=== PATIENT | male | born 1990 | race Caucasian/White ===

== ENCOUNTER 2023-10-10 21:34 | Observation (INO) | payer OTHER ==
[2023-10-10] MEDS ORDERED: KETOROLAC 15 MG/ML 1 ML VIAL IVP STA (22:24)
[2023-10-10] MEDS ORDERED: SODIUM CHLORIDE 0.9% 1,000 ML IV ONE (22:25)
[2023-10-10 23:52] LABS: Basophils % (A) 1 %; Eosinophils # (A) 0.2 k/uL (0-0.7); Eosinophils % (A) 4 %; HCT 42.6 % (39.0-53.0); HGB 13.9 gm/dL (13.0-17.5); Lymphocytes # (A) 2.2 k/uL (1.0-4.8); Lymphocytes % (A) 41 %; MCH 30.7 pg (25.0-35.0); MCHC 32.7 g/dL (31.0-37.0); MCV 93.7 fL (80.0-100.0); Mean Platelet Volume 7.8; Monocytes # (A) 0.4 k/uL (0-1.0); Monocytes % (A) 7 %; Neutrophils # (A) 2.4 k/uL (1.3-7.7); Neutrophils % (A) 45 %; Platelet Count 204 k/uL (150-450); RBC 4.55 m/uL (4.30-5.90); RDW 13.7 % (11.5-15.5); WBC 5.4 k/uL (3.8-10.6)
[2023-10-11 00:02] LABS: ALT 153 U/L (4-49); AST 90 U/L (17-59); African American GFR (CKD) >90 (>60 ml/min/1.73 sqM); Albumin 3.7 g/dL (3.5-5.0); Alkaline Phosphatase 70 U/L (38-126); Anion Gap 9 mmol/L; Blood Urea Nitrogen 11 mg/dL (9-20); Calcium 8.8 mg/dL (8.4-10.2); Carbon Dioxide 25 mmol/L (22-30); Chloride 110 mmol/L (98-107); Glucose 87 mg/dL (74-99); Non-African American GFR(CKD) >90 (>60 ml/min/1.73 sqM); Potassium 4.6 mmol/L (3.5-5.1); Sodium 144 mmol/L (137-145); Total Bilirubin 0.3 mg/dL (0.2-1.3)
[2023-10-11] MEDS ORDERED: SODIUM CHLORIDE 0.9% 1,000 ML IV ONE (02:28)
[2023-10-11] MEDS ORDERED: VANCOMYCIN IV PER PHARMACY 1 EACH MISC MISCELLANE PRN (02:37)
[2023-10-11] MEDS: SODIUM CHLORIDE 0.9% 1,000 ML IV SCH ×3 (02:41→18:48)
[2023-10-11] MEDS ORDERED: VANCOMYCIN 1,250 MG in SODIUM CHLORIDE 0.9% 250 ML IVPB STA (02:41)
--- NOTE | 2023-10-11 03:43 | ED ---
Skin/Abscess/FB HPI - General Chief complaint: Skin/Abscess/Foreign Body Stated complaint: bilateral arm pain Time Seen by Provider: 10/10/23 22:04 Source: patient Mode of arrival: ambulatory Limitations: no limitations - History of Present Illness Initial comments: 32-year-old male presenting with chief complaint of abscesses to the bilateral forearms. Patient has history of IV drug use involving heroin, meth, and crack. He is currently at [facility], nursing staff noted erythema and redness and swelling to the bilateral forearms today and sent him to the ER. Patient states he has been experiencing chills and did vomit today. He has history of abscesses due to IV drug use. - Related Data Home Medications Medication Instructions Recorded Confirmed Acetaminophen Tab [Tylenol] 650 mg PO Q4H PRN 10/11/23 10/11/23 Calcium Phos/D3/Magnesium/Zinc 1 tab PO TID PRN 10/11/23 10/11/23 [Wiopive-Jvh-Vpth-Vitamin D3] Cephalexin [Keflex] 500 mg PO Q6HR 10/11/23 10/11/23 Chlorpheniramine Maleate 4 mg PO Q4H PRN 10/11/23 10/11/23 [Chlor-Trimeton] Ibuprofen [Motrin Ib] 600 mg PO Q6H PRN 10/11/23 10/11/23 Melatonin 5 mg PO HS 10/11/23 10/11/23 Methadone HCl [Methadone Intensol] 50 mg PO DAILY 10/11/23 10/11/23 Sulfamethox-Tmp 800-160Mg [Bactrim 1 tab PO Q12HR 10/11/23 10/11/23 DS 800-160 mg] cloNIDine HCL [Catapres] 0.1 - 0.3 mg PO Q4H PRN 10/11/23 10/11/23 ondansetron HCL [Ondansetron HCl] 8 mg PO Q6H PRN 10/11/23 10/11/23 traZODone HCL [Desyrel] 50 - 150 mg PO HS PRN 10/11/23 10/11/23 Allergies Allergy/AdvReac Type Severity Reaction Status Date / Time No Known Allergies Allergy Verified 10/11/23 12:15 Review of Systems ROS Statement: Those systems with pertinent positive or pertinent negative responses have been documented in the HPI. ROS Other: All systems not noted in ROS Statement are negative. Past Medical History Additional Past Medical History / Comment(s): Hep C History of Any Multi-Drug Resistant Organisms: MRSA Date of last positivie culture/infection: 2005 MDRO Source:: Left foot Past Surgical History: Hernia Repair Past Psychological History: Bipolar, PTSD Smoking Status: Current every day smoker Past Alcohol Use History: None Reported Past Drug Use History: Cocaine, Heroin, IV Drug Use, Marijuana, Methamphetamine, Opiates, Prescription Drug Abuse General Exam Limitations: no limitations General appearance: alert, in no apparent distress Head exam: Present: atraumatic, normocephalic Eye exam: Present: normal appearance Neck exam: Present: normal inspection Respiratory exam: Present: normal lung sounds bilaterally. Absent: respiratory distress, wheezes, rales, rhonchi, stridor Cardiovascular Exam: Present: regular rate, normal rhythm, normal heart sounds. Absent: systolic murmur, diastolic murmur, rubs, gallop, clicks Left Forearm Wrist exam: Present: tenderness, swelling, erythema Vascular: Present: radial pulse (2+) Right Forearm Wrist exam: Present: tenderness, swelling, erythema Vascular: Present: radial pulse (2+) Neurological exam: Present: alert, oriented X3 Psychiatric exam: Present: normal affect, normal mood Skin exam: Present: erythema Course Vital Signs 10/10/23 10/11/23 10/11/23 21:56 01:00 02:35 Temperature 98.3 F Pulse Rate 80 55 L 50 L Respiratory 18 18 16 Rate Blood Pressure 110/73 88/52 92/56 O2 Sat by Pulse 99 97 98 Oximetry 10/11/23 10/11/23 10/11/23 03:00 04:00 05:00 Temperature Pulse Rate 52 L 54 L 55 L Respiratory 18 18 18 Rate Blood Pressure 92/56 92/70 88/65 O2 Sat by Pulse 98 98 98 Oximetry 10/11/23 10/11/23 10/11/23 06:30 07:58 09:09 Temperature 97.6 F Pulse Rate 54 L 45 L 48 L Respiratory 18 18 16 Rate Blood Pressure 90/64 100/74 101/69 O2 Sat by Pulse 98 100 98 Oximetry Medical Decision Making - Medical Decision Making Was pt. sent in by a medical professional or institution (, PA, FRONT OFFICE CLERK, urgent care, hospital, or halfway...) When possible be specific @ -No Did you speak to anyone other than the patient for history (EMS, parent, family, police, friend...)? What history was obtained from this source @ -No Did you review nursing and triage notes (agree or disagree)? Why? @ -I reviewed and agree with nursing and triage notes Were old charts reviewed (outside hosp., previous admission, EMS record, old EKG, old radiological studies, urgent care reports/EKG's, halfway records)? Report findings @ -No old charts were reviewed Differential Diagnosis (chest pain, altered mental status, abdominal pain women, abdominal pain men, vaginal bleeding, weakness, fever, dyspnea, syncope, headache, dizziness, GI bleed, back pain, seizure, CVA, palpatations, mental health, musculoskeletal)? @ -Differential includes abscess, cellulitis, this is not an all inclusive list EKG interpreted by me (3pts min.). @ -As above X-rays interpreted by me (1pt min.). @ -None done CT interpreted by me (1pt min.). @ -None done U/S interpreted by me (1pt. min.). @ -Report is pending. The following shift ultrasound was available: Within the right dorsal forearm denies centimeter hypoechoic collection which may relate to developing abscess. With the left dorsal forearm is a 1.9 x 0.5 x 1.9 cm collection which may relate to developing abscess. Within the left ventral forearm is a hypoechoic collection measuring up to 0.6 cm. Findings may relate to small abscess What testing was considered but not performed or refused? (CT, X-rays, U/S, labs)? Why? @ -None What meds were considered but not given or refused? Why? @ -None Did you discuss the management of the patient with other professionals (professionals i.e. , PA, FRONT OFFICE CLERK, lab, RT, psych nurse, family welfare social work professor, four h agent, teacher, traffic maintenance officer, registered nurse hh case manager)? Give summary @ -My attending spoke with the [facility] provider on-call who accepted admission Was smoking cessation discussed for >3mins.? @ -No Was critical care preformed (if so, how long)? @ -No Were there social determinants of health that impacted care today? How? (Homelessness, low income, unemployed, alcoholism, drug addiction, transportation, low edu. Level, literacy, decrease access to med. care, fci, rehab)? @ -IVDA Was there de-escalation of care discussed even if they declined (Discuss DNR or withdrawal of care, Hospice)? DNR status @ -No What co-morbidities impacted this encounter? (DM, HTN, Smoking, COPD, CAD, Cancer, CVA, ARF, Chemo, Hep., AIDS, mental health diagnosis, sleep apnea, morbid obesity)? @ -None Was patient admitted / discharged? Hospital course, mention meds given and route, prescriptions, significant lab abnormalities, going to OR and other pertinent info. @ -32-year-old male presenting with chief complaint of bilateral forearm abscesses. He has history of IVDA and is currently at [facility]. On physical examination there are bilateral indurated abscesses to the forearms. Ultrasound is ordered. No leukocytosis or anemia is noted. Patient is given Toradol for pain. He started on IV fluids and vancomycin after blood cultures are drawn. He will be admitted for further management. Patient is agreeable with this plan. I discussed this case with my attending Dr. Gamez Undiagnosed new problem with uncertain prognosis? @ -No Drug Therapy requiring intensive monitoring for toxicity (Heparin, Nitro, Insulin, Cardizem)? @ -No Were any procedures done? @ -No Diagnosis/symptom? @ -Abscesses Acute, or Chronic, or Acute on Chronic? @ -Acute Uncomplicated (without systemic symptoms) or Complicated (systemic symptoms)? @ -Complicated Side effects of treatment? @ -No Exacerbation, Progression, or Severe Exacerbation? @ -No Poses a threat to life or bodily function? How? (Chest pain, USA, MA, pneumonia, PE, COPD, DKA, ARF, appy, cholecystitis, CVA, Diverticulitis, Homicidal, Suicidal, threat to staff... and all critical care pts) @ -Yes - Lab Data Result diagrams: 10/10/23 22:25 10/10/23 22:25 Lab Results 10/10/23 10/10/23 10/10/23 Range/Units 22:25 22:25 22:25 WBC 5.4 (3.8-10.6) k/uL RBC 4.55 (4.30-5.90) m/uL Hgb 13.9 (13.0-17.5) gm/dL Hct 42.6 (39.0-53.0) % MCV 93.7 (80.0-100.0) fL MCH 30.7 (25.0-35.0) pg MCHC 32.7 (31.0-37.0) g/dL RDW 13.7 (11.5-15.5) % Plt Count 204 (150-450) k/uL MPV 7.8 Neutrophils % 45 % Lymphocytes % 41 % Monocytes % 7 % Eosinophils % 4 % Basophils % 1 % Neutrophils # 2.4 (1.3-7.7) k/uL Lymphocytes # 2.2 (1.0-4.8) k/uL Monocytes # 0.4 (0-1.0) k/uL Eosinophils # 0.2 (0-0.7) k/uL Basophils # 0.0 (0-0.2) k/uL Sodium 144 (137-145) mmol/L Potassium 4.6 (3.5-5.1) mmol/L Chloride 110 H (98-107) mmol/L Carbon Dioxide 25 (22-30) mmol/L Anion Gap 9 mmol/L BUN 11 (9-20) mg/dL Creatinine 0.67 (0.66-1.25) mg/dL Est GFR (CKD-EPI)AfAm >90 (>60 ml/min/1.73 sqM) Est GFR (CKD-EPI)NonAf >90 (>60 ml/min/1.73 sqM) Glucose 87 (74-99) mg/dL Plasma Lactic Acid Darnell 0.8 (0.7-2.0) mmol/L Calcium 8.8 (8.4-10.2) mg/dL Total Bilirubin 0.3 (0.2-1.3) mg/dL AST 90 H (17-59) U/L ALT 153 H (4-49) U/L Alkaline Phosphatase 70 (38-126) U/L Total Protein 7.0 (6.3-8.2) g/dL Albumin 3.7 (3.5-5.0) g/dL Disposition Clinical Impression: Abscess of forearm, left, Abscess of forearm, right Disposition: ADMITTED IP TO THIS [facility] Condition: Stable
[2023-10-11] MEDS ORDERED: IBUPROFEN 400 MG TAB PO PRN (04:40)
[2023-10-11] MEDS ORDERED: NALOXONE 0.4 MG/ML 1 ML VIAL IV PRN (04:40)
--- NOTE | 2023-10-11 05:12 | US ---
EXAM: US Limited CLINICAL HISTORY: ITS.REASON US Reason: B/L arm abscesses TECHNIQUE: Real-time ultrasound of the left upper extremity was obtained. COMPARISON: No relevant prior studies available. IMPRESSION: 1. Within the dorsal right forearm is a 0.7 cm hypoechoic collection which may relate to developing abscess. 2. Within the left dorsal forearm is a 1.9 x 0.5 x 1.9 cm collection which may relate to developing abscess. 3. Within the left ventral forearm is a hypoechoic collection measuring up to 0.6 cm. Findings may relate to small abscess.
[2023-10-11] MEDS ORDERED: LOPERAMIDE 2 MG CAP PO PRN (07:45)
[2023-10-11] MEDS ORDERED: ALPRAZolam 0.5 MG TAB PO PRN (07:45)
[2023-10-11] MEDS ORDERED: ACETAMINOPHEN TAB 325 MG TAB PO PRN (07:45)
--- NOTE | 2023-10-11 07:56 | P.HPIM ---
History of Present Illness This is a pleasant 32 years old male with past medical history of hep C, bipolar disorder, PTSD, substance abuse and smoker. He presents from [facility] for bilateral forearm painful swellings suspicious for abscesses Patient states that he injects drugs including heroine, crack/cocaine, and meth mainly on the dorsum of the hands and forearms. Patient states that he got tired of them so he checked himself into [facility] wanting to quit these substances. However his start complaining from bilateral arm pain so he came to the hospital. Patient denies signs symptoms of depression, suicidal ideation, homicidal ideation, he denies delusions or hallucinations. He denies any other specific symptoms, no chest pain or dyspnea. No coughing. No urinary complaints, no vomiting diarrhea, he vomited once yesterday but thus stopped. No headache dizziness currently he had little dizziness. No weakness or numbness. He smokes about 1-2 packs per day and he was counseled and he agrees and he agrees with the nicotine patch. No alcohol. Works as above. Labs reviewed patient was slightly hypotensive and bradycardic, unknown baseline. Blood pressure 90/64 and heart rate 54. Labs show an unremarkable CBC, BMP. Liver enzymes slightly elevated with AST 19 and ALT 153. Ultrasound showing dorsum right forearm abscesses 0.7 cm, dorsal left forearm abscess 1.9 x 0.5 x 1.9 cm. And ventral left forearm abscess 0.6 cm Patient currently on IV vancomycin on normal saline at 1 30 mL/h and was admitted with infectious disease consults. Review of Systems Review of systems CONSTITUTIONAL: No fever, no malaise, no fatigue. HEENT: No recent visual problems or hearing problems. Denied any sore throat. CARDIOVASCULAR: No orthopnea, PND, no palpitations, no syncope. PULMONARY: No shortness of breath, no cough, no hemoptysis. GASTROINTESTINAL: No diarrhea, no nausea, no vomiting, no abdominal pain. Normoactive bowel sounds. NEUROLOGICAL: No headaches, no weakness, no numbness. HEMATOLOGICAL: Denies any bleeding or petechiae. GENITOURINARY: Denies any burning micturition, frequency, or urgency. MUSCULOSKELETAL/RHEUMATOLOGICAL: Denies any joint pain, swelling, or any muscle pain. ENDOCRINE: Denies any polyuria or polydipsia. Past Medical History Additional Past Medical History / Comment(s): Hep C History of Any Multi-Drug Resistant Organisms: MRSA Date of last positivie culture/infection: 2005 MDRO Source:: Left foot Past Surgical History: Hernia Repair Past Psychological History: Bipolar, PTSD Smoking Status: Current every day smoker Past Alcohol Use History: None Reported Past Drug Use History: Cocaine, Heroin, IV Drug Use, Marijuana, Methamphetamine, Opiates, Prescription Drug Abuse Medications and Allergies Allergies Allergy/AdvReac Type Severity Reaction Status Date / Time No Known Allergies Allergy Verified 10/10/23 21:59 Physical Exam Vitals: Vital Signs Temp Pulse Resp BP Pulse Ox 10/11/23 06:30 54 L 18 90/64 98 10/11/23 05:00 55 L 18 88/65 98 10/11/23 04:00 54 L 18 92/70 98 10/11/23 03:00 52 L 18 92/56 98 10/11/23 02:35 50 L 16 92/56 98 10/11/23 01:00 55 L 18 88/52 97 10/10/23 21:56 98.3 F 80 18 110/73 99 Intake and Output 10/10/23 10/11/23 10/11/23 22:59 06:59 14:59 Other: Weight 68.039 kg -GENERAL: The patient is alert and oriented x3, mildly drowsy not in any acute distress. Well developed, well nourished. HEENT: Pupils are round and equally reacting to light. EOMI. No scleral icterus. No conjunctival pallor. Normocephalic, atraumatic. No pharyngeal erythema. No thyromegaly. CARDIOVASCULAR: S1 and S2 present. No murmurs, rubs, or gallops. PULMONARY: Chest is clear to auscultation, no wheezing , no crackles. ABDOMEN: Soft, nontender, nondistended, normoactive bowel sounds. No palpable organomegaly. MUSCULOSKELETAL: No joint swelling or deformity. -EXTREMITIES: No cyanosis, clubbing, or pedal edema. Bilateral forearm abscesses, swelling on the dorsum of the forearm on both sides about 1-2 inches in diameter, one on the right side and 2 on the left side. NEUROLOGICAL: Gross neurological examination did not reveal any focal deficits. SKIN: No rashes. no petechiae. Results CBC & Chem 7: 10/10/23 22:25 10/10/23 22:25 Labs: Abnormal Lab Results - Last 24 Hours (Table) 10/10/23 Range/Units 22:25 Chloride 110 H (98-107) mmol/L AST 90 H (17-59) U/L ALT 153 H (4-49) U/L Assessment and Plan Assessment: Bilateral forearm abscesses Substance abuse including heroin, cocaine and methamphetamine Nicotine dependence Bradycardia and borderline low blood pressure Plan: Continue with antibiotic, consult infectious disease team Follow-up culture results Gen. surgery consult Symptomatic treatment for possible withdrawal symptoms Check EKG TSH Labs and medication were reviewed.. Continue same treatment. Continue with symptomatic treatment. Resume home medication. Monitor labs and vitals. DVT and GI prophylaxis. Further recommendations as per clinical course of the patient DVT prophylaxis: Subcutaneous heparin GI Prophylaxis: Pepcid Prognosis is guarded
[2023-10-11] MEDS: FAMOTIDINE 20 MG/2 ML VIAL IV SCH ×2 (09:03→21:03)
[2023-10-11] MEDS: HEPARIN SODIUM,PORCINE 5,000 UNIT/ML 1 ML VIAL SQ SCH ×2 (09:06→21:03)
[2023-10-11] MEDS: NICOTINE 21MG/24HR PATCH TRANSDERM SCH (09:06)
[2023-10-11] MEDS: VANCOMYCIN 1,250 MG in SODIUM CHLORIDE 0.9% 250 ML IVPB SCH ×2 (12:05→18:48)
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
[2023-10-11] MEDS: KETOROLAC 15 MG/ML 1 ML VIAL IVP PRN (21:03)
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
[2023-10-12] MEDS: VANCOMYCIN 1,250 MG in SODIUM CHLORIDE 0.9% 250 ML IVPB SCH ×3 (01:39→17:38)
[2023-10-12] MEDS: SODIUM CHLORIDE 0.9% 1,000 ML IV SCH ×3 (01:56→16:34)
[2023-10-12] MEDS: KETOROLAC 15 MG/ML 1 ML VIAL IVP PRN (05:50)
[2023-10-12] MEDS ORDERED: VANCOMYCIN TROUGH DUE 1 EACH MISC MISCELLANE ONE (09:00)
[2023-10-12] MEDS: FAMOTIDINE 20 MG/2 ML VIAL IV SCH ×2 (09:02→21:55)
[2023-10-12] MEDS: HEPARIN SODIUM,PORCINE 5,000 UNIT/ML 1 ML VIAL SQ SCH ×2 (09:02→21:55)
[2023-10-12] MEDS: NICOTINE 21MG/24HR PATCH TRANSDERM SCH ×2 (09:03→16:35)
[2023-10-12 09:53] LABS: HCT 39.2 % (39.0-53.0); HGB 12.7 gm/dL (13.0-17.5); MCH 30.8 pg (25.0-35.0); MCHC 32.4 g/dL (31.0-37.0); MCV 94.8 fL (80.0-100.0); Platelet Count 218 k/uL (150-450); RBC 4.13 m/uL (4.30-5.90); RDW 13.8 % (11.5-15.5); WBC 3.2 k/uL (3.8-10.6)
[2023-10-12 10:43] LABS: African American GFR (CKD) >90 (>60 ml/min/1.73 sqM); Anion Gap 8 mmol/L; Blood Urea Nitrogen 6 mg/dL (9-20); Calcium 8.4 mg/dL (8.4-10.2); Carbon Dioxide 23 mmol/L (22-30); Chloride 113 mmol/L (98-107); Glucose 87 mg/dL (74-99); Non-African American GFR(CKD) >90 (>60 ml/min/1.73 sqM); Potassium 3.9 mmol/L (3.5-5.1); Sodium 144 mmol/L (137-145)
[2023-10-12 11:28] LABS: Eosinophils # (M) 0.22 k/uL (0-0.7); Lymphocytes # (M) 1.54 k/uL (1.0-4.8); Monocytes # (M) 0.42 k/uL (0-1.0); Neutrophils # (M) 1.02 k/uL (1.3-7.7); Neutrophils % (M) 32 %; Nucleated Red Blood Cells 0 /100 WBC (0-0); Total Cells Counted 200
[2023-10-12 11:29] LABS: RBC Morphology Normal
--- NOTE | 2023-10-12 12:46 | P.PN ---
Subjective Progress Note Date: 10/12/23 Principal diagnosis: Cellulitis Patient doing better today. Says his pain is improved. He is afebrile. No drainage. Objective - Vital Signs Vital signs: Vital Signs Temp 97.7 F 10/12/23 07:20 Pulse 51 L 10/12/23 07:20 Resp 18 10/12/23 07:20 BP 125/85 10/12/23 07:20 Pulse Ox 100 10/12/23 07:20 FiO2 Intake & Output 10/11/23 10/12/23 10/12/23 18:59 06:59 18:59 Weight 68.039 kg Other: # Voids 2 3 - Exam Bilateral forearm with multiple small areas of cellulitis, no fluctuant areas, erythema and tenderness definitely improved from yesterday. - Labs CBC & Chem 7: 10/12/23 08:44 10/12/23 08:44 Labs: Abnormal Lab Results - Last 24 Hours (Table) 10/12/23 10/12/23 Range/Units 08:44 08:44 WBC 3.2 L (3.8-10.6) k/uL RBC 4.13 L (4.30-5.90) m/uL Hgb 12.7 L (13.0-17.5) gm/dL Neutrophils # (Manual) 1.02 L (1.3-7.7) k/uL Chloride 113 H (98-107) mmol/L BUN 6 L (9-20) mg/dL Creatinine 0.60 L (0.66-1.25) mg/dL Assessment and Plan (1) Abscess of forearm, left Narrative/Plan: Patient doing better at this time. No surgical drainage is needed at this time. We'll follow. Continue antibiotics. Current Visit: Yes Status: Acute Code(s): L02.414 - CUTANEOUS ABSCESS OF LEFT UPPER LIMB SNOMED Code(s): 35141597697669805
[2023-10-12] MEDS ORDERED: METHADONE 10 MG TAB PO ONE (13:15)
--- NOTE | 2023-10-12 14:59 | P.PN ---
Subjective Progress Note Date: 10/12/23 Principal diagnosis: Reason for follow-up is bilateral upper extremity abscess and cellulitis Patient is 32-year-old male with a past medical history significant for IV drug use presenting to the hospital from [facility] [place] concerning for increasing pain swelling redness to bilateral upper extremity ultrasound was suspicious for bilateral upper extremity abscess and cellulitis On today's evaluation that is 10/12/2023 the patient continues to be afebrile, the patient is breathing comfortably on room air without need for supplemental oxygen patient denies having any chest pain shortness of breath or cough, the patient denies having any nausea no vomiting no abdominal pain no diarrhea, the patient pain and swelling to bilateral upper extremity has decreased in intensity no open wound or any drainage Patient white count is 3.2, creatinine 0.60 blood cultures currently pending Objective - Vital Signs Vital signs: Vital Signs Temp 97.7 F 10/12/23 07:20 Pulse 51 L 10/12/23 07:20 Resp 18 10/12/23 07:20 BP 125/85 10/12/23 07:20 Pulse Ox 100 10/12/23 07:20 FiO2 Intake & Output 10/11/23 10/12/23 10/12/23 18:59 06:59 18:59 Weight 68.039 kg Other: # Voids 2 3 - Exam GENERAL DESCRIPTION: Middle-age male lying in bed in no distress RESPIRATORY SYSTEM: Unlabored breathing , decreased breath sounds at bases HEART: S1 S2 regular rate and rhythm , ABDOMEN: Soft , no tenderness EXTREMITIES: Bilateral upper extremity swelling redness slightly decreased that is tender to touch - Labs CBC & Chem 7: 10/12/23 08:44 10/12/23 08:44 Labs: Abnormal Lab Results - Last 24 Hours (Table) 10/12/23 10/12/23 Range/Units 08:44 08:44 WBC 3.2 L (3.8-10.6) k/uL RBC 4.13 L (4.30-5.90) m/uL Hgb 12.7 L (13.0-17.5) gm/dL Neutrophils # (Manual) 1.02 L (1.3-7.7) k/uL Chloride 113 H (98-107) mmol/L BUN 6 L (9-20) mg/dL Creatinine 0.60 L (0.66-1.25) mg/dL Microbiology - Last 24 Hours (Table) 10/10/23 23:30 Blood Culture - Preliminary Blood 10/10/23 23:45 Blood Culture - Preliminary Blood Assessment and Plan (1) Abscess of forearm, left Current Visit: Yes Status: Acute Code(s): L02.414 - CUTANEOUS ABSCESS OF LEFT UPPER LIMB SNOMED Code(s): 70701114703597366 (2) Abscess of forearm, right Current Visit: Yes Status: Acute Code(s): L02.413 - CUTANEOUS ABSCESS OF RIGHT UPPER LIMB SNOMED Code(s): 83486684767696595 Plan: 1patient is a 32-year-old male with a history of IV drug use presenting to the hospital with bilateral upper extremity pain swelling redness abnormal ultrasound suspicion for an abscess from the drug use likely from gram-positive skin swetha in this patient who did have previous history of MRSA infection more likely dealing with MRSA abscess and cellulitis 2surgery recommending no surgical drainage in view of the clinical improvement. 3we will keep the patient on vancomycin pharmacy to dose while waiting for the blood culture to finalize and monitor his clinical course closely Dictation was produced using [employer] dictation software. please excuse any grammatical, word or spelling errors.
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
--- NOTE | 2023-10-12 19:45 | P.PN ---
Subjective This is a pleasant 32 years old male with past medical history of hep C, bipolar disorder, PTSD, substance abuse and smoker. He presents from [facility] for bilateral forearm painful swellings suspicious for abscesses Patient states that he injects drugs including heroine, crack/cocaine, and meth mainly on the dorsum of the hands and forearms. Patient states that he got tired of them so he checked himself into [facility] wanting to quit these substances. However his start complaining from bilateral arm pain so he came to the hospital. Patient denies signs symptoms of depression, suicidal ideation, homicidal ideation, he denies delusions or hallucinations. He denies any other specific symptoms, no chest pain or dyspnea. No coughing. No urinary complaints, no vomiting diarrhea, he vomited once yesterday but thus stopped. No headache dizziness currently he had little dizziness. No weakness or numbness. He smokes about 1-2 packs per day and he was counseled and he agrees and he agrees with the nicotine patch. No alcohol. Works as above. Labs reviewed patient was slightly hypotensive and bradycardic, unknown baseline. Blood pressure 90/64 and heart rate 54. Labs show an unremarkable CBC, BMP. Liver enzymes slightly elevated with AST 19 and ALT 153. Ultrasound showing dorsum right forearm abscesses 0.7 cm, dorsal left forearm abscess 1.9 x 0.5 x 1.9 cm. And ventral left forearm abscess 0.6 cm Patient currently on IV vancomycin on normal saline at 1 30 mL/h and was admitted with infectious disease consults. 10/12/2023 Bilateral forearm abscesses are decreasing in size with the treatment with IV vancomycin No need for surgical intervention, surgery team on the case Patient request methadone to be given today otherwise he will lose access to it as he describes. We tried to contact his Center [[facility]], patient does not have contact information which she says he can provided tomorrow possibly. Papers from [facility] says he is on methadone 50 mg. Patient confirms she was taken with the [facility] at [facility]. One-time dose of methadone 50 mg provided today QTC is 413. Put patient on telemetry and check EKG tomorrow Monitor labs in the morning he remains on normal saline with 130 mL/h Case was discussed twice with the bed size nerve patient Shift Review of systems CONSTITUTIONAL: No fever, no malaise, no fatigue. HEENT: No recent visual problems or hearing problems. Denied any sore throat. CARDIOVASCULAR: No orthopnea, PND, no palpitations, no syncope. PULMONARY: No shortness of breath, no cough, no hemoptysis. GASTROINTESTINAL: No diarrhea, no nausea, no vomiting, no abdominal pain. Normoactive bowel sounds. NEUROLOGICAL: No headaches, no weakness, no numbness. Active Medications Generic Name Dose Route Start Last Admin Trade Name Freq PRN Reason Stop Dose Admin Acetaminophen 650 mg 10/11/23 07:45 Acetaminophen Tab 325 Mg Tab PO Q6HR PRN Fever and/ or Pain Alprazolam 0.5 mg 10/11/23 07:45 Alprazolam 0.5 Mg Tab PO TID PRN Anxiety Diazepam 5 mg 10/11/23 11:09 10/12/23 11:18 Diazepam 5 Mg/Ml 2 Ml Inj IVP 5 mg BID PRN Administration withdraw Famotidine 20 mg 10/11/23 09:00 10/12/23 09:02 Famotidine 20 Mg/2 Ml Vial IV 20 mg Q12HR SEGUNDO Administration Heparin Sodium (Porcine) 5,000 unit 10/11/23 09:00 10/12/23 09:02 Heparin Sodium,Porcine 5,000 Unit/Ml 1 Ml Vial SQ 5,000 unit Q12HR SEGUNDO Administration Sodium Chloride 1,000 mls @ 130 mls/hr 10/11/23 02:30 10/12/23 16:34 Saline 0.9% IV 130 mls/hr .[id number] SEGUNDO Administration Vancomycin HCl 1,250 mg/ 250 mls @ 125 mls/hr 10/11/23 10:00 10/12/23 17:38 Sodium Chloride IVPB 125 mls/hr Q8H SEGUNDO Administration Ibuprofen 400 mg 10/11/23 04:40 Ibuprofen 400 Mg Tab PO Q6HR PRN Mild Pain or Fever > 100.5 Ketorolac Tromethamine 15 mg 10/11/23 04:40 10/12/23 05:50 Ketorolac 15 Mg/Ml 1 Ml Vial IVP 10/14/23 04:41 15 mg Q6HR PRN Administration Moderate Pain (Scale 4 to 6) Loperamide HCl 2 mg 10/11/23 07:45 Loperamide 2 Mg Cap PO QID PRN Diarrhea Naloxone HCl 0.2 mg 10/11/23 04:40 Naloxone 0.4 Mg/Ml 1 Ml Vial IV Q2M PRN Opioid Reversal Nicotine 1 patch 10/11/23 09:00 10/12/23 16:35 Nicotine 21mg/24hr Patch TRANSDERM 1 patch DAILY SEGUNDO Administration Objective - Vital Signs Vital signs: Vital Signs Temp 97.7 F 10/12/23 07:20 Pulse 51 L 10/12/23 07:20 Resp 18 10/12/23 07:20 BP 125/85 10/12/23 07:20 Pulse Ox 100 10/12/23 07:20 FiO2 Intake & Output 10/11/23 10/12/23 10/12/23 18:59 06:59 18:59 Weight 68.039 kg Other: # Voids 2 3 - Exam -GENERAL: The patient is alert and oriented x3, mildly drowsy not in any acute distress. Well developed, well nourished. HEENT: Pupils are round and equally reacting to light. EOMI. No scleral icterus. No conjunctival pallor. Normocephalic, atraumatic. No pharyngeal erythema. No thyromegaly. CARDIOVASCULAR: S1 and S2 present. No murmurs, rubs, or gallops. PULMONARY: Chest is clear to auscultation, no wheezing , no crackles. ABDOMEN: Soft, nontender, nondistended, normoactive bowel sounds. No palpable or ganomegaly. MUSCULOSKELETAL: No joint swelling or deformity. -EXTREMITIES: No cyanosis, clubbing, or pedal edema. Bilateral forearm abscesses, swelling on the dorsum of the forearm on both sides about 1-2 inches in diameter, one on the right side and 2 on the left side. NEUROLOGICAL: Gross neurological examination did not reveal any focal deficits. SKIN: No rashes. no petechiae. - Labs CBC & Chem 7: 10/12/23 08:44 10/12/23 08:44 Labs: Abnormal Lab Results - Last 24 Hours (Table) 10/12/23 Range/Units 08:44 WBC 3.2 L (3.8-10.6) k/uL RBC 4.13 L (4.30-5.90) m/uL Hgb 12.7 L (13.0-17.5) gm/dL Assessment and Plan Assessment: Bilateral forearm abscesses Substance abuse including heroin, cocaine and methamphetamine. On methadone Nicotine dependence Bradycardia and borderline low blood pressure Plan: Continue with antibiotic, consult infectious disease team Follow-up culture results Gen. surgery consult Symptomatic treatment for possible withdrawal symptoms Check EKG Methadone started per patient request to prevent withdrawal into prevent losing access to his medication labs and medication were reviewed.. Continue same treatment. Continue with symptomatic treatment. Resume home medication. Monitor labs and vitals. DVT and GI prophylaxis. Further recommendations as per clinical course of the patient DVT prophylaxis: Subcutaneous heparin GI Prophylaxis: Pepcid Prognosis is guarded
[2023-10-13] MEDS: SODIUM CHLORIDE 0.9% 1,000 ML IV SCH ×3 (01:19→16:54)
[2023-10-13] MEDS: VANCOMYCIN 1,250 MG in SODIUM CHLORIDE 0.9% 250 ML IVPB SCH ×3 (01:52→19:54)
[2023-10-13 06:46] LABS: ALT 109 U/L (4-49); AST 69 U/L (17-59); African American GFR (CKD) >90 (>60 ml/min/1.73 sqM); Albumin 2.8 g/dL (3.5-5.0); Albumin/Globulin Ratio 0.9; Alkaline Phosphatase 65 U/L (38-126); Anion Gap 8 mmol/L; Blood Urea Nitrogen 8 mg/dL (9-20); Calcium 8.2 mg/dL (8.4-10.2); Carbon Dioxide 23 mmol/L (22-30); Chloride 110 mmol/L (98-107); Glucose 105 mg/dL (74-99); Non-African American GFR(CKD) >90 (>60 ml/min/1.73 sqM); Sodium 141 mmol/L (137-145); Total Bilirubin 0.3 mg/dL (0.2-1.3); Total Protein 5.8 g/dL (6.3-8.2)
[2023-10-13 08:43] LABS: Basophils # (A) 0.03 X 10*3/uL (0.00-0.10); Basophils % (A) 0.8 %; Eosinophils # (A) 0.15 X 10*3/uL (0.04-0.35); Eosinophils % (A) 3.8 %; HCT 37.7 % (39.6-50.0); HGB 12.1 g/dL (13.0-17.0); Lymphocytes # (A) 2.15 X 10*3/uL (0.90-5.00); Lymphocytes % (A) 54.6 %; MCH 29.7 pg (27.0-32.0); MCHC 32.1 g/dL (32.0-37.0); MCV 92.6 FL (80.0-97.0); Mean Platelet Volume 9.8 FL (9.5-12.2); Monocytes # (A) 0.29 X 10*3/uL (0.20-1.00); Monocytes % (A) 7.4 %; NRBC Per 100 WBC 0 X 10*3/uL (0.00-0.01); Neutrophils # (A) 1.31 X 10*3/uL (1.80-7.70); Neutrophils % (A) 33.1 %; Platelet Count 198 X 10*3/uL (140-440); RBC 4.07 X 10*6/uL (4.40-5.60); WBC 3.94 X 10*3/uL (4.50-10.00)
[2023-10-13] MEDS: HEPARIN SODIUM,PORCINE 5,000 UNIT/ML 1 ML VIAL SQ SCH ×2 (08:51→22:15)
[2023-10-13] MEDS: NICOTINE 21MG/24HR PATCH TRANSDERM SCH (08:52)
[2023-10-13] MEDS: FAMOTIDINE 20 MG/2 ML VIAL IV SCH ×2 (10:13→22:15)
--- NOTE | 2023-10-13 12:58 | P.PN ---
Subjective Progress Note Date: 10/13/23 Principal diagnosis: Reason for follow-up is bilateral upper extremity abscess and cellulitis Patient is 32-year-old male with a past medical history significant for IV drug use [place] the [facility] [place] for increasing pain swelling redness to bilateral upper extremity ultrasound was suspicious for bilateral upper extremity abscess and cellulitis On today's evaluation that is 10/13/2023 patient remains to be afebrile, the patient is breathing comfortably on room air, the patient denies chest pain shortness of breath or cough., The patient denies nausea vomiting no abdominal pain and denies diarrhea. Patient bilateral upper extremity pain has decreased in intensity swelling has decreased no point area or any drainage patient mention feeling better wants to go home The patient white count of 3.94, creatinine 0.67 Objective - Vital Signs Vital signs: Vital Signs Temp 98.4 F 10/13/23 12:15 Pulse 52 L 10/13/23 12:15 Resp 14 10/13/23 12:15 BP 135/80 10/13/23 12:15 Pulse Ox 100 10/13/23 12:15 FiO2 Intake & Output 10/12/23 10/13/23 10/13/23 18:59 06:59 18:59 Other: # Voids 3 2 - Exam GENERAL DESCRIPTION: Middle-age male lying in bed in no distress RESPIRATORY SYSTEM: Unlabored breathing , decreased breath sounds at bases HEART: S1 S2 regular rate and rhythm , ABDOMEN: Soft , no tenderness EXTREMITIES: Bilateral upper extremity swelling redness slightly decreased that is tender to touch - Labs CBC & Chem 7: 10/13/23 05:53 10/13/23 05:53 Labs: Abnormal Lab Results - Last 24 Hours (Table) 10/13/23 10/13/23 Range/Units 05:53 05:53 WBC 3.94 L (4.50-10.00) X 10*3/uL RBC 4.07 L (4.40-5.60) X 10*6/uL Hgb 12.1 L (13.0-17.0) g/dL Hct 37.7 L (39.6-50.0) % Neutrophils # 1.31 L (1.80-7.70) X 10*3/uL Chloride 110 H (98-107) mmol/L BUN 8 L (9-20) mg/dL Glucose 105 H (74-99) mg/dL Calcium 8.2 L (8.4-10.2) mg/dL AST 69 H (17-59) U/L ALT 109 H (4-49) U/L Total Protein 5.8 L (6.3-8.2) g/dL Albumin 2.8 L (3.5-5.0) g/dL Microbiology - Last 24 Hours (Table) 10/10/23 23:30 Blood Culture - Preliminary Blood 10/10/23 23:45 Blood Culture - Preliminary Blood Assessment and Plan (1) Abscess of forearm, left Current Visit: Yes Status: Acute Code(s): L02.414 - CUTANEOUS ABSCESS OF LEFT UPPER LIMB SNOMED Code(s): 25103567095564151 (2) Abscess of forearm, right Current Visit: Yes Status: Acute Code(s): L02.413 - CUTANEOUS ABSCESS OF R IGHT UPPER LIMB SNOMED Code(s): 92985849875023661 Plan: 1patient is a 32-year-old male with a history of IV drug use presenting to the hospital with bilateral upper extremity pain swelling redness abnormal ultrasound suspicion for an abscess from the drug use likely from gram- positive skin swetha in this patient who did have previous history of MRSA infection more likely dealing with MRSA abscess and cellulitis 2surgery recommending no surgical drainage in view of the clinical improvement. 3patient seem to have shown clinical improvement and blood cultures has been negative so far patient seem to be insisting on going back to the drug rehab center, patient to continue with the vancomycin while inpatient however finishing therapy with Bactrim DS 1 twice daily for 10 days Dictation was produced using [employer] Experience dictation software. please excuse any grammatical, word or spelling errors. Time with Patient: Less than 30
--- NOTE | 2023-10-13 13:26 | P.PN ---
Subjective Progress Note Date: 10/13/23 CHIEF COMPLAINT: Bilateral forearm with small areas of cellulitis HISTORY OF PRESENT ILLNESS: Patient reports that the Sinemet is on his arms is improving. His pain is better. Decreased erythema. Erythema decreasing. No drainage. Followed by infectious disease on antibiotics. Afebrile. WBC 3.94 hgb 12.1 PHYSICAL EXAM: VITAL SIGNS: Reviewed. GENERAL: Well-developed in no acute distress. ABDOMEN: Soft. Nondistended. Nontender. NEUROLOGIC: Alert and oriented. Cranial nerves II through XII grossly intact. Extremities: Bilateral forearm with multiple small areas of cellulitis. No fluctuant areas. Decreased erythema. Mild tenderness with palpation of areas ASSESSMENT: 1. Bilateral forearm with multiple areas of cellulitis and possible small abscess bilateral on US. Improving with antibiotics 2. IV drug abuse PLAN: -No surgical intervention planned -Discharge antibiotics per infectious disease -Agree with following up with [place] at discharge Physician Temperature Regulator Pyrometer note has been reviewed by physician. Signing provider agrees with the documented findings, assessment, and plan of care. Objective - Vital Signs Vital signs: Vital Signs Temp 98.4 F 10/13/23 12:15 Pulse 52 L 10/13/23 12:15 Resp 14 10/13/23 12:15 BP 135/80 10/13/23 12:15 Pulse Ox 100 10/13/23 12:15 FiO2 Intake & Output 10/12/23 10/13/23 10/13/23 18:59 06:59 18:59 Other: # Voids 3 2 - Labs CBC & Chem 7: 10/13/23 05:53 10/13/23 05:53 Labs: Abnormal Lab Results - Last 24 Hours (Table) 10/13/23 10/13/23 Range/Units 05:53 05:53 WBC 3.94 L (4.50-10.00) X 10*3/uL RBC 4.07 L (4.40-5.60) X 10*6/uL Hgb 12.1 L (13.0-17.0) g/dL Hct 37.7 L (39.6-50.0) % Neutrophils # 1.31 L (1.80-7.70) X 10*3/uL Chloride 110 H (98-107) mmol/L BUN 8 L (9-20) mg/dL Glucose 105 H (74-99) mg/dL Calcium 8.2 L (8.4-10.2) mg/dL AST 69 H (17-59) U/L ALT 109 H (4-49) U/L Total Protein 5.8 L (6.3-8.2) g/dL Albumin 2.8 L (3.5-5.0) g/dL Microbiology - Last 24 Hours (Table) 10/10/23 23:30 Blood Culture - Preliminary Blood 10/10/23 23:45 Blood Culture - Preliminary Blood
[2023-10-13] MEDS: METHADONE 10 MG TAB PO SCH (14:20)
[2023-10-13 15:59] VITALS: BMI 20.9
[2023-10-14] MEDS: SODIUM CHLORIDE 0.9% 1,000 ML IV SCH ×3 (01:24→13:14)
[2023-10-14] MEDS: VANCOMYCIN 1,250 MG in SODIUM CHLORIDE 0.9% 250 ML IVPB SCH ×2 (02:07→09:01)
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
[2023-10-14 08:30] VITALS: BP 111/70; RESP 16; TEMP 97.6
[2023-10-14] MEDS: FAMOTIDINE 20 MG/2 ML VIAL IV SCH (08:59)
[2023-10-14] MEDS: NICOTINE 21MG/24HR PATCH TRANSDERM SCH (09:00)
[2023-10-14] MEDS: HEPARIN SODIUM,PORCINE 5,000 UNIT/ML 1 ML VIAL SQ SCH (09:00)
[2023-10-14] MEDS: METHADONE 10 MG TAB PO SCH (09:00)
--- NOTE | 2023-10-14 11:07 | CA ---
Transthoracic Echo Report Name: Oscar King Age: 32 Gender: M : 1990 Exam Date: 10/13/2023 16:03 Exam Location: [place] [facility] Ht (in): 71 Wt (lb): 150 Ordering Physician: Romeo Gilbert MD Attending/Referring Phys: [id number], [place] Clinical Trial Educator Jarrell Palma Procedure CPT: Indications: Rule out heart disease Cardiac Hx: Technical Quality: Good Contrast 1: Total Dose (mL): Contrast 2: Total Dose (mL): MEASUREMENTS (Male / Female) Normal Values 2D ECHO LV Diastolic Diameter PLAX 5.0 cm 4.2 - 5.9 / 3.9 - 5.3 cm LV Systolic Diameter PLAX 3.1 cm IVS Diastolic Thickness 0.8 cm 0.6 - 1.0 / 0.6 - 0.9 cm LVPW Diastolic Thickness 0.8 cm 0.6 - 1.0 / 0.6 - 0.9 cm LV Relative Wall Thickness 0.3 RV Internal Dim ED PLAX 3.3 cm LVOT Diameter 2.3 cm Aortic Root Diameter 3.0 cm LA Systolic Diameter LX 3.3 cm 3.0 - 4.0 / 2.7 - 3.8 cm LV Diastolic Volume MOD BP 105.0 cm??? 67 - 155 / 56 - 104 cm??? LV Systolic Volume MOD BP 45.7 cm??? 22 - 58 / 19 - 49 cm??? LV Ejection Fraction MOD BP 56.5 % >= 55 % LV Cardiac Index MOD BP 1772.5 cm???/min???m??? LV Diastolic Volume MOD 4C 112.9 cm??? LV Systolic Volume MOD 4C 45.6 cm??? LV Ejection Fraction MOD 4C 59.6 % LV Cardiac Index MOD 4C 2009.5 cm???/min???m??? LV Diastolic Length 4C 9.4 cm LV Systolic Length 4C 7.5 cm LV Diastolic Volume MOD 2C 77.5 cm??? LV Systolic Volume MOD 2C 40.6 cm??? LV Ejection Fraction MOD 2C 47.7 % LV Cardiac Index MOD 2C 1104.0 cm???/min???m??? LV Diastolic Length 2C 7.3 cm LV Systolic Length 2C 6.6 cm LA Volume 33.1 cm??? 18 - 58 / 22 - 52 cm??? LA Volume Index 18.0 cm???/m??? 16 - 28 cm???/m??? DOPPLER AV Peak Velocity 142.9 cm/s AV Peak Gradient 8.2 mmHg AV Mean Velocity 105.4 cm/s AV Mean Gradient 5.0 mmHg AV Velocity Time Integral 32.6 cm AI Peak Velocity 191.2 cm/s AI Peak Gradient 14.6 mmHg AI Pressure Half Time 692.4 ms LVOT Peak Velocity 113.3 cm/s LVOT Peak Gradient 5.1 mmHg LVOT Velocity Time Integral 26.6 cm LVOT Stroke Volume 107.5 cm??? LVOT Stroke Volume Index 57.6 ml/m??? LVOT Cardiac Index 3213.1 cm???/min???m??? AV Area Cont Eq vti 3.3 cm??? AV Area Cont Eq pk 3.2 cm??? MV Peak Velocity 105.3 cm/s MV Peak Gradient 4.4 mmHg MV Mean Velocity 42.0 cm/s MV Mean Gradient 0.9 mmHg MV Velocity Time Integral 36.6 cm MR Peak Velocity 269.4 cm/s MR Peak Gradient 29.0 mmHg Mitral E Point Velocity 87.5 cm/s Mitral A Point Velocity 60.5 cm/s Mitral E to A Ratio 1.4 MV Deceleration Time 266.6 ms MV E' Velocity 12.2 cm/s Mitral E to MV E' Ratio 7.2 TR Peak Velocity 249.2 cm/s TR Peak Gradient 24.8 mmHg Right Ventricular Systolic Press 29.8 mmHg PV Peak Velocity 90.4 cm/s PV Peak Gradient 3.3 mmHg FINDINGS Left Ventricle Normal LV size and wall thickness. Left ventricular ejection fraction is estimated at 60-65_ %. Right Ventricle Normal right ventricular size. Right Atrium Normal right atrial size. Left Atrium Normal left atrial size. Mitral Valve Structurally normal mitral valve. Mild MR. Aortic Valve Trileaflet aortic valve. Trace to mild AI. Tricuspid Valve Structurally normal tricuspid valve. Mild TR. Pulmonic Valve Pulmonic valve not well visualized. No pulmonic regurgitation. Pericardium Normal pericardium. Aorta Normal size aortic root. CONCLUSIONS Normal LV size and systolic function. There is minimal mitral tricuspid and aortic insufficiency. No pericardial effusion. No pulmonary hypertension. Previewed by: Dr. Amada Coyle MD (Electronically Signed) Final Date: 14 October 2023 11:06
[2023-10-14 12:30] VITALS: PULSE 68
--- NOTE | 2023-10-14 14:59 | P.PN ---
Subjective Progress Note Date: 10/14/23 CHIEF COMPLAINT: Bilateral forearm with small areas of cellulitis HISTORY OF PRESENT ILLNESS: Patient reports that the Sinemet is on his arms is improving. His pain is better. Decreased erythema. Erythema decreasing. No drainage. Followed by infectious disease on antibiotics. Afebrile. WBC 3.94 hgb 12.1 PHYSICAL EXAM: VITAL SIGNS: Reviewed. GENERAL: Well-developed in no acute distress. ABDOMEN: Soft. Nondistended. Nontender. NEUROLOGIC: Alert and oriented. Cranial nerves II through XII grossly intact. Extremities: Bilateral forearm with multiple small areas of cellulitis. No fluctuant areas. Decreased erythema. Mild tenderness with palpation of areas ASSESSMENT: 1. Bilateral forearm with multiple areas of cellulitis and possible small abscess bilateral on US. Improving with antibiotics 2. IV drug abuse PLAN: -No surgical intervention planned -Discharge antibiotics per infectious disease -Agree with following up with [place] at discharge Physician Salesforce Business Analyst note has been reviewed by physician. Signing provider agrees with the documented findings, assessment, and plan of care. Objective - Vital Signs Vital signs: Vital Signs Temp 97.6 F 10/14/23 07:27 Pulse 68 10/14/23 11:35 Resp 16 10/14/23 07:27 BP 111/70 10/14/23 07:27 Pulse Ox 100 10/14/23 07:27 FiO2 Intake & Output 10/13/23 10/14/23 10/14/23 18:59 06:59 18:59 Weight 68.039 kg Other: # Voids 4 3 - Labs CBC & Chem 7: 10/13/23 05:53 10/13/23 05:53 Labs: Microbiology - Last 24 Hours (Table) 10/10/23 23:30 Blood Culture - Preliminary Blood 10/10/23 23:45 Blood Culture - Preliminary Blood
[2023-10-15] MEDS ORDERED: VANCOMYCIN TROUGH DUE 1 EACH MISC MISCELLANE ONE (09:00)
--- NOTE | 2023-10-21 16:50 | P.PN ---
Subjective This is a pleasant 32 years old male with past medical history of hep C, bipolar disorder, PTSD, substance abuse and smoker. He presents from [facility] for bilateral forearm painful swellings suspicious for abscesses Patient states that he injects drugs including heroine, crack/cocaine, and meth mainly on the dorsum of the hands and forearms. Patient states that he got tired of them so he checked himself into [facility] wanting to quit these substances. However his start complaining from bilateral arm pain so he came to the hospital. Patient denies signs symptoms of depression, suicidal ideation, homicidal ideation, he denies delusions or hallucinations. He denies any other specific symptoms, no chest pain or dyspnea. No coughing. No urinary complaints, no vomiting diarrhea, he vomited once yesterday but thus stopped. No headache dizziness currently he had little dizziness. No weakness or numbness. He smokes about 1-2 packs per day and he was counseled and he agrees and he agrees with the nicotine patch. No alcohol. Works as above. Labs reviewed patient was slightly hypotensive and bradycardic, unknown baseline. Blood pressure 90/64 and heart rate 54. Labs show an unremarkable CBC, BMP. Liver enzymes slightly elevated with AST 19 and ALT 153. Ultrasound showing dorsum right forearm abscesses 0.7 cm, dorsal left forearm abscess 1.9 x 0.5 x 1.9 cm. And ventral left forearm abscess 0.6 cm Patient currently on IV vancomycin on normal saline at 1 30 mL/h and was admitted with infectious disease consults. 10/12/2023 Bilateral forearm abscesses are decreasing in size with the treatment with IV vancomycin No need for surgical intervention, surgery team on the case Patient request methadone to be given today otherwise he will lose access to it as he describes. We tried to contact his Center [[facility]], patient does not have contact information which she says he can provided tomorrow possibly. Papers from [facility] says he is on methadone 50 mg. Patient confirms she was taken with the [facility] at [facility]. One-time dose of methadone 50 mg provided today QTC is 413. Put patient on telemetry and check EKG tomorrow Monitor labs in the morning he remains on normal saline with 130 mL/h Case was discussed twice with the bed size nerve patient Shift 10/13/2023 patient's bilateral from a abscesses are improving, he remains on IV vancomycin and patient would be cleared for discharge by both surgery and infectious disease team. However patient is developing a bradycardia with concerning for symptoms especially he is on methadone therefore we are going to monitor the patient for another 24 hours and consult cardiology team with echocardiogram is ordered. Discussed with the patient and he verbalized understanding and acceptance with this plan Objective - Vital Signs Vital signs: Vital Signs Temp 98.4 F 10/13/23 12:15 Pulse 52 L 10/13/23 12:15 Resp 14 10/13/23 12:15 BP 135/80 10/13/23 12:15 Pulse Ox 100 10/13/23 12:15 FiO2 Intake & Output 10/12/23 10/13/23 10/13/23 18:59 06:59 18:59 Weight 68.039 kg Other: # Voids 3 2 - Exam -GENERAL: The patient is alert and oriented x3, mildly drowsy not in any acute distress. Well developed, well nourished. HEENT: Pupils are round and equally reacting to light. EOMI. No scleral icterus. No conjunctival pallor. Normocephalic, atraumatic. No pharyngeal erythema. No thyromegaly. CARDIOVASCULAR: S1 and S2 present. No murmurs, rubs, or gallops. PULMONARY: Chest is clear to auscultation, no wheezing , no crackles. ABDOMEN: Soft, nontender, nondistended, normoactive bowel sounds. No palpable organomegaly. MUSCULOSKELETAL: No joint swelling or deformity. -EXTREMITIES: No cyanosis, clubbing, or pedal edema. Bilateral forearm abscesses, swelling on the dorsum of the forearm on both sides about 1-2 inches in diameter, one on the right side and 2 on the left side. NEUROLOGICAL: Gross neurological examination did not reveal any focal deficits. SKIN: No rashes. no petechiae. - Labs CBC & Chem 7: 10/13/23 05:53 10/13/23 05:53 Labs: Abnormal Lab Results - Last 24 Hours (Table) 10/13/23 10/13/23 Range/Units 05:53 05:53 WBC 3.94 L (4.50-10.00) X 10*3/uL RBC 4.07 L (4.40-5.60) X 10*6/uL Hgb 12.1 L (13.0-17.0) g/dL Hct 37.7 L (39.6-50.0) % Neutrophils # 1.31 L (1.80-7.70) X 10*3/uL Chloride 110 H (98-107) mmol/L BUN 8 L (9-20) mg/dL Glucose 105 H (74-99) mg/dL Calcium 8.2 L (8.4-10.2) mg/dL AST 69 H (17-59) U/L ALT 109 H (4-49) U/L Total Protein 5.8 L (6.3-8.2) g/dL Albumin 2.8 L (3.5-5.0) g/dL Microbiology - Last 24 Hours (Table) 10/10/23 23:30 Blood Culture - Preliminary Blood 10/10/23 23:45 Blood Culture - Preliminary Blood Assessment and Plan Assessment: Bilateral forearm abscesses Sinus bradycardia, significant Substance abuse including heroin, cocaine and methamphetamine. On methadone Nicotine dependence Bradycardia and borderline low blood pressure Plan: Check echocardiogram and cardiology consult Continue with antibiotic, consult infectious disease team Follow-up culture results Gen. surgery consult Symptomatic treatment for possible withdrawal symptoms Check EKG Methadone started per patient request to prevent withdrawal into prevent losing access to his medication labs and medication were reviewed.. Continue same treatment. Continue with symptomatic treatment. Resume home medication. Monitor labs and vitals. DVT and GI prophylaxis. Further recommendations as per clinical course of the patient DVT prophylaxis: Subcutaneous heparin GI Prophylaxis: Pepcid Prognosis is guarded
--- NOTE | 2023-10-21 16:54 | P.DS ---
Providers Date of admission: 10/11/23 05:31 Attending physician: Maggie Mcgee Consults: 10/11/23 04:40 Consult Physician Urgent Consulting Provider: Gaby Garcia Consult Reason/Comments: Bilateral forearm abscesses Do you want consulting provider notified?: Yes, Notify in am 10/11/23 07:44 Consult Physician Routine Consulting Provider: Jorge Bob Consult Reason/Comments: skin abcess Do you want consulting provider notified?: Yes 10/11/23 11:08 Consult Physician Urgent Consulting Provider: Andi Bojorquez Consult Reason/Comments: substance abuse and withdraw Do you want consulting provider notified?: Yes Primary care physician: Stated None Hospital Course: Date of service 10/14/2023 Diagnoses: Bilateral forearm abscesses Sinus bradycardia, significant evaluated by banquet food server and cleared him for discharge Substance abuse including heroin, cocaine and methamphetamine. On methadone Nicotine dependence Bradycardia and borderline low blood pressure Hospital course: This is a pleasant 32 years old male with past medical history of hep C, bipolar disorder, PTSD, substance abuse and smoker. He presents from [facility] for bilateral forearm painful swellings suspicious for abscesses Patient states that he injects drugs including heroine, crack/cocaine, and meth mainly on the dorsum of the hands and forearms. Patient states that he got tired of them so he checked himself into [facility] wanting to quit these substances. However his start complaining from bilateral arm pain so he came to the hospital. Ultrasound showing dorsum right forearm abscesses 0.7 cm, dorsal left forearm abscess 1.9 x 0.5 x 1.9 cm. And ventral left forearm abscess 0.6 cm Patient was treated on IV vancomycin on normal saline . Patient was closely followed by ID team and surgery team who cleared him for discharge Patient also developed bradycardia, echocardiogram showed ejection fraction 60- 65%. I talked to Dr. Coyle banquet food server who cleared him for discharge. Patient's wants to go back to [facility] and he is eager to pursue his treatment. Patient denies depression or suicidal ideation Problems and management plan were discussed with the patient and he verbalized understanding and acceptance Patient was found stable and can be discharged home in guarded prognosis however he needs follow-up as an outpatient. Patient was instructed to follow up with PCP within one week and patient agrees Patient was instructed to follow up with Dr. Fiordaliza one week and banquet food server Dr. Coyle in 1-[address] Garcia in 1 weeks and he agrees Physical exam Gen: patient is a AAOx3, no distress CVS: S1-S2, RRR, no murmur Lungs: B/L CTA, no wheezing Abdomen: soft, no distention, no tenderness, positive bowel sounds. -Extremity: no leg edema or induration. Improving multiple abscesses on the dorsum of both forearms less than 1 cm in diameter* Time spent more than 35 minutes Patient Condition at Discharge: Stable Plan - Discharge Summary Discharge Rx Participant: No New Discharge Prescriptions: New Nicotine 21Mg/24Hr Patch [Habitrol] 1 patch TRANSDERM DAILY #3 patch Continue ondansetron HCL [Zofran] 8 mg PO Q6H PRN PRN Reason: Nausea Acetaminophen Tab [Tylenol] 650 mg PO Q4H PRN PRN Reason: Pain Or Fever > 100.5 Melatonin 5 mg PO HS Chlorpheniramine Maleate [Chlor-Trimeton] 4 mg PO Q4H PRN PRN Reason: withdrawl symptoms Methadone HCl [Methadone Intensol] 50 mg PO DAILY Sulfamethox-Tmp 800-160Mg [Bactrim DS 800-160 mg] 1 tab PO Q12HR 10 Days #20 tab traZODone HCL [Desyrel] 50 - 150 mg PO HS PRN PRN Reason: sleep Ibuprofen [Motrin Ib] 600 mg PO Q6H PRN PRN Reason: Pain Or Fever > 100.5 Calcium Phos/D3/Magnesium/Zinc [Gsxnvxh-Dnf-Yipo-Vitamin D3] 1 tab PO TID PRN PRN Reason: CRAMPS Discontinued Cephalexin [Keflex] 500 mg PO Q6HR cloNIDine HCL [Catapres] 0.1 - 0.3 mg PO Q4H PRN PRN Reason: ANXIETY/HIGH BP/WITHDRAWL Discharge Medication List Acetaminophen Tab [Tylenol] 650 mg PO Q4H PRN 10/11/23 [History] Calcium Phos/D3/Magnesium/Zinc [Aqduiog-Xeb-Lbkg-Vitamin D3] 1 tab PO TID PRN 10/11/23 [History] Chlorpheniramine Maleate [Chlor-Trimeton] 4 mg PO Q4H PRN 10/11/23 [History] Ibuprofen [Motrin Ib] 600 mg PO Q6H PRN 10/11/23 [History] Melatonin 5 mg PO HS 10/11/23 [History] Methadone HCl [Methadone Intensol] 50 mg PO DAILY 10/11/23 [History] ondansetron HCL [Zofran] 8 mg PO Q6H PRN 10/11/23 [History] traZODone HCL [Desyrel] 50 - 150 mg PO HS PRN 10/11/23 [History] Nicotine 21Mg/24Hr Patch [Habitrol] 1 patch TRANSDERM DAILY #3 patch 10/14/23 [Rx] Sulfamethox-Tmp 800-160Mg [Bactrim DS 800-160 mg] 1 tab PO Q12HR 10 Days #20 tab 10/14/23 [Rx] Follow up Appointment(s)/Referral(s): Jorge Bob MD [Medical Doctor] - 1 Week Amada Coyle MD [STAFF PHYSICIAN] - 1 Week None,Stated [Primary Care Provider] - 1-2 days Gaby Garcia MD [STAFF PHYSICIAN] - 1 Week Patient Instructions/Handouts: Abscess (GEN) Activity/Diet/Wound Care/Special Instructions: [facility]: [phone] heart healthy diet activity is restricted till you see your doctor avoid clonidine as it lowers your heart rate We recommend to check your blood test including your kidney functions and electrolytes with your doctor in 1 week while you are taking antibiotic of Bactrim Discharge Disposition: OTHER INSTITUTION NOT DEFINED
--- NOTE | 2023-10-21 18:18 | P.PN ---
Subjective Progress Note Date: 10/14/23 Principal diagnosis: Reason for follow-up is bilateral upper extremity abscess and cellulitis Patient is 32-year-old male with a past medical history significant for IV drug use presenting to the hospital from [facility] [place] concerning for increasing pain swelling redness to bilateral upper extremity ultrasound was suspicious for bilateral upper extremity abscess and cellulitis On today's evaluation that is 10/14/2023 patient continues to be afebrile, the patient is breathing comfortably on room air, the patient denies chest pain shortness of breath or cough., The patient denies nausea vomiting no abdominal pain and denies diarrhea. Patient bilateral upper extremity pain has decreased in intensity, the patient is feeling better wants to go home The patient white count of 3.94, creatinine 0.67 as of 10/13/2023 no CBC was done today blood culture negative Objective - Vital Signs Vital signs: Vital Signs Temp 97.6 F 10/14/23 07:27 Pulse 68 10/14/23 11:35 Resp 16 10/14/23 07:27 BP 111/70 10/14/23 07:27 Pulse Ox 100 10/14/23 07:27 FiO2 Intake & Output 10/13/23 10/14/23 10/14/23 18:59 06:59 18:59 Weight 68.039 kg Other: # Voids 4 3 - Exam GENERAL DESCRIPTION: Middle-age male lying in bed in no distress RESPIRATORY SYSTEM: Unlabored breathing , decreased breath sounds at bases HEART: S1 S2 regular rate and rhythm , ABDOMEN: Soft , no tenderness EXTREMITIES: Bilateral upper extremity swelling redness slightly decreased that is tender to touch - Labs CBC & Chem 7: 10/13/23 05:53 10/13/23 05:53 Labs: Microbiology - Last 24 Hours (Table) 10/10/23 23:30 Blood Culture - Preliminary Blood 10/10/23 23:45 Blood Culture - Preliminary Blood Assessment and Plan (1) Abscess of forearm, left Status: Acute Code(s): L02.414 - CUTANEOUS ABSCESS OF LEFT UPPER LIMB SNOMED Code(s): 20963746630601791 (2) Abscess of forearm, right Status: Acute Code(s): L02.413 - CUTANEOUS ABSCESS OF RIGHT UPPER LIMB SNOMED Code(s): 83531974652035770 Plan: 1patient is a 32-year-old male with a history of IV drug use presenting to the hospital with bilateral upper extremity pain swelling redness abnormal ultrasound suspicion for an abscess from the drug use likely from gram- positive skin swetha in this patient who did have previous history of MRSA infection more likely dealing with MRSA abscess and cellulitis 2surgery recommending no surgical drainage in view of the clinical improvement. 3patient has shown clinical improvement and blood cultures has been negative, plan is to finish therapy with Bactrim DS 1 twice daily for 10 days and close outpatient follow-up Dictation was produced using [employer] dictation software. please excuse any grammatical, word or spelling errors. Time with Patient: Less than 30
== END 2023-10-14 13:27 | disposition other institution (70) ==
LOC: EC 21:34 → INTOOBSV 10-11 05:31 → 4SSUR 10-11 05:31 → UNDODISIN 10-14 13:27
PROVIDERS: ADMIT Hospitalist; ATTEND Hospitalist
DX: L03.113 Cellulitis of right upper limb (principal); L03.114 Cellulitis of left upper limb; R00.1 Bradycardia, unspecified; F31.9 Bipolar disorder, unspecified; F14.10 Cocaine abuse, uncomplicated; F15.10 Other stimulant abuse, uncomplicated; F11.10 Opioid abuse, uncomplicated; L02.413 Cutaneous abscess of right upper limb; L02.414 Cutaneous abscess of left upper limb; I25.2 Old myocardial infarction; B19.20 Unspecified viral hepatitis C without hepatic coma; Z86.14 Personal history of Methicillin resistant Staphylococcus aureus infection; F17.210 Nicotine dependence, cigarettes, uncomplicated; Z71.6 Tobacco abuse counseling; F12.10 Cannabis abuse, uncomplicated; F43.10 Post-traumatic stress disorder, unspecified; Z87.19 Personal history of other diseases of the digestive system
CPT/HCPCS: 96361 ×2; 96365; 96366; 96372; 96375 ×2; 99285; 36415; 93306; 93005; 80053; 80048 ×2; 80076; 84443; 83605; 85025 ×3; 80202; 87040; 76882; G0378 ×4; S4990 ×4; J3370 ×4; J1644 ×4; J3360 ×2; J3490 ×4; S0109 ×3; J1885 ×3